=== PATIENT | male | born 1935 | race Caucasian/White ===

== ENCOUNTER 2017-12-17 15:57 | Inpatient (IN) | payer OTHER ==
[~2017-12-17] VITALS: Ht 172.7 cm; Wt 65.7 kg
[2017-12-17 17:10] LABS: Hematocrit 38.1 % (41.0-53.0); Hemoglobin 12.9 g/dL (13.5-17.5); Mean Corpuscular Hemoglobin 30.1 pg (28.0-32.0); Mean Corpuscular Hgb Conc. 33.8 g/dL (32.0-36.0); Platelet Count (auto) 146 10^3/uL (140-450); Red Blood Cells 4.28 10^6/uL (4.5-5.90); Red Cell Distribution Width 15.2 % (11.8-14.3); White Blood Cell 3.2 10^3/uL (4.4-10.8)
[2017-12-17 17:19] LABS: Band Neutrophils % (manual) 0; Basophils % (manual) 0 (0.0-2.0); Blast Cells 0; Metamyelocytes % 0; Myelocytes % 0; Promyelocytes % 0; Reactive Lymphocytes 0
[2017-12-17 17:21] LABS: INR 1.28 (0.9-1.15); Partial Thromboplastin Time 34.8 sec (22.64-33.71)
[2017-12-17 17:30] LABS: Albumin 3.7 g/dL (3.4-5.0); BUN/Creatinine Ratio 36.8; Calcium 9.6 mg/dL (8.5-10.1); Magnesium 2.1 mg/dL (1.6-2.6); Potassium 4.3 mmol/L (3.5-5.1)
[2017-12-17 17:33] LABS: Bilirubin, Total 1.3 mg/dL (0.2-1.0); Total Protein 7.2 g/dL (6.4-8.2)
[2017-12-17 17:35] LABS: Eosinophils % (manual) 9 (0-7); Lymphocytes % (manual) 41 (10.0-50.0); Monocytes % (manual) 8 (0-12)
[2017-12-17] MEDS: METOPROLOL TARTRATE 50 MG TAB PO SCH (20:24)
[2017-12-17] MEDS ORDERED: LISINOPRIL 10 MG TAB PO ONE (20:30)
[2017-12-17 22:00] VITALS: BP 145/62
[2017-12-17 22:51] VITALS: BP 145/62
[2017-12-18 04:57] VITALS: BP 100/57
[2017-12-18] MEDS ORDERED: MET50T GT (05:46)
[2017-12-18] MEDS ORDERED: FURO40TA PO (05:46)
[2017-12-18] MEDS ORDERED: METO2.5T11 PO (05:46)
[2017-12-18] MEDS ORDERED: APIX2.5T OR (05:46)
[2017-12-18] MEDS ORDERED: LOVA40TA72 PO (05:46)
[2017-12-18] MEDS ORDERED: POTA10TA51 PO (05:46)
[2017-12-18] MEDS ORDERED: FLUT250M2 IN (05:46)
[2017-12-18] MEDS ORDERED: LISI10TA6 PO (05:46)
[2017-12-18 08:00] VITALS: BP 128/67
[2017-12-18 08:28] LABS: Urine Bacteria NONE SEEN /hpf (None Seen); Urine Blood 2+ /uL (Negative); Urine Specific Gravity 1.028 (1.001-1.035); Urine WBC 6 /hpf (0 - 3)
[2017-12-18 09:00] VITALS: BP 127/67
[2017-12-18] MEDS: METOPROLOL TARTRATE 50 MG TAB PO SCH (09:56)
[2017-12-18] MEDS: LISINOPRIL 10 MG TAB PO SCH (09:57)
[2017-12-18] MEDS: BOOST PLUS 8 ounce PO SCH ×2 (09:58→18:00)
[2017-12-18 13:00] VITALS: BP 80/48
[2017-12-18 16:43] VITALS: BP 113/61
[2017-12-18 22:00] VITALS: BP 126/65
[2017-12-19 05:00] VITALS: BP 95/52
[2017-12-19 08:00] VITALS: BP 116/59
[2017-12-19] MEDS: BOOST PLUS 8 ounce PO SCH ×2 (08:00→18:00)
[2017-12-19 09:00] VITALS: BP 117/68
[2017-12-19] MEDS: METOPROLOL TARTRATE 50 MG TAB PO SCH (11:37)
[2017-12-19] MEDS: LISINOPRIL 10 MG TAB PO SCH (11:38)
[2017-12-19 13:00] VITALS: BP 90/50
[2017-12-19 16:47] VITALS: BP 80/46
[2017-12-19] MEDS: HYDROcodone-ACET 10/325MG TAB PO PRN (22:32)
[2017-12-19 22:58] VITALS: BP 115/63
[2017-12-20 05:29] VITALS: BP 98/52
[2017-12-20 08:00] VITALS: BP 90/50
[2017-12-20] MEDS: BOOST PLUS 8 ounce PO SCH ×2 (08:00→17:12)
[2017-12-20 08:15] VITALS: BP 112/56
[2017-12-20] MEDS: HYDROcodone-ACET 10/325MG TAB PO PRN ×2 (08:46→17:12)
[2017-12-20] MEDS: LISINOPRIL 10 MG TAB PO SCH (11:11)
[2017-12-20] MEDS: METOPROLOL TARTRATE 50 MG TAB PO SCH (11:12)
[2017-12-20 13:00] VITALS: BP 128/69
[2017-12-20 17:00] VITALS: BP 83/45
[2017-12-20 22:00] VITALS: BP 108/57
[2017-12-21 05:51] VITALS: BP 120/63
[2017-12-21] MEDS: BOOST PLUS 8 ounce PO SCH (08:00)
[2017-12-21 08:25] VITALS: BP 93/56
[2017-12-21 09:40] VITALS: BP 93/56
[2017-12-21] MEDS: METOPROLOL TARTRATE 50 MG TAB PO SCH (10:00)
[2017-12-21] MEDS: LISINOPRIL 10 MG TAB PO SCH (10:00)
== END 2017-12-21 11:30 | disposition home or self-care (01) | DRG 695 ==
LOC: EDBD 15:57 → ER 15:57 → TELE 15:58 → TELE-WESTW 21:43
PROVIDERS: ADMIT Internal Medicine Cardiovascular Disease; ATTEND Internal Medicine
DX: R31.0 Gross hematuria (principal); J96.90 Respiratory failure, unspecified, unspecified whether with hypoxia or hypercapnia; R64 Cachexia; N13.8 Other obstructive and reflux uropathy; R16.1 Splenomegaly, not elsewhere classified; I13.0 Hypertensive heart and chronic kidney disease with heart failure and stage 1 through stage 4 chronic kidney disease, or unspecified chronic kidney disease; N40.1 Benign prostatic hyperplasia with lower urinary tract symptoms; J44.9 Chronic obstructive pulmonary disease, unspecified; N13.9 Obstructive and reflux uropathy, unspecified; K57.30 Diverticulosis of large intestine without perforation or abscess without bleeding; I25.10 Atherosclerotic heart disease of native coronary artery without angina pectoris; I70.8 Atherosclerosis of other arteries; N18.3 Chronic kidney disease, stage 3 (moderate); N41.9 Inflammatory disease of prostate, unspecified; N32.89 Other specified disorders of bladder; R33.8 Other retention of urine; Z68.22 Body mass index [BMI] 22.0-22.9, adult; Z95.0 Presence of cardiac pacemaker; Z87.81 Personal history of (healed) traumatic fracture; Z79.899 Other long term (current) drug therapy; Z82.49 Family history of ischemic heart disease and other diseases of the circulatory system; Z95.1 Presence of aortocoronary bypass graft; Z71.3 Dietary counseling and surveillance
CPT/HCPCS: 36415; 71045; 80053; 81001; 82378; 83735; 83880; 84154; 84443; 85007; 85027; 85610; 85730; 93005

== ENCOUNTER → 2017-12-17 | Outpatient (CLI) | payer MEDICARE, OTHER ==
[~2017-12-17] MED LIST: APIX2.5T OR; FLUT250M2 IN; FURO40TA PO; IOHEXOL 350 MG/ML 100ML IJ ONE; LISI10TA6 PO; LOVA40TA72 PO; MET50T GT; METO2.5T11 PO; POTA10TA51 PO; SODIUM CHLORIDE 0.9% 250 ML IV ONE
[2017-12-17 12:30] VITALS: BP 149/59
[2017-12-17 15:35] VITALS: BP 126/64
[2017-12-17 15:58] LABS: Urine Bacteria NONE SEEN /hpf (None Seen); Urine Blood 3+ /uL (Negative); Urine Specific Gravity 1.017 (1.001-1.035); Urine WBC 43 /hpf (0 - 3)
== END | disposition home or self-care (01) ==
LOC: Rad HDHVI 12:59
PROVIDERS: ATTEND Internal Medicine Cardiovascular Disease
DX: N39.0 Urinary tract infection, site not specified (principal); J90 Pleural effusion, not elsewhere classified; J43.2 Centrilobular emphysema; I25.10 Atherosclerotic heart disease of native coronary artery without angina pectoris; N40.0 Benign prostatic hyperplasia without lower urinary tract symptoms; K57.30 Diverticulosis of large intestine without perforation or abscess without bleeding; R16.1 Splenomegaly, not elsewhere classified; K44.9 Diaphragmatic hernia without obstruction or gangrene; K55.1 Chronic vascular disorders of intestine; R31.9 Hematuria, unspecified; I50.9 Heart failure, unspecified; I13.0 Hypertensive heart and chronic kidney disease with heart failure and stage 1 through stage 4 chronic kidney disease, or unspecified chronic kidney disease; N18.3 Chronic kidney disease, stage 3 (moderate); Z79.899 Other long term (current) drug therapy; Z68.22 Body mass index [BMI] 22.0-22.9, adult; Z95.0 Presence of cardiac pacemaker
CPT/HCPCS: 71260; 74177; 81001; 82043; 96360; G0463; J7050; Q9967